=== PATIENT | female | born 1970 | race Caucasian/White ===

== ENCOUNTER 2025-03-18 15:46 | Outpatient (REF) | payer MEDICAID, SELFPAY ==
[2025-03-18 18:21] LABS: MANUAL DIFF FLAG NO
[2025-03-18 18:51] LABS: Hematocrit 35.5 % (37.0-47.0); Hemoglobin 11.3 g/dl (12.0-16.0); Imm Gran Abs Auto 0.00 X10*3/uL (0.00-0.03); Imm Gran Pct Auto 0.0 % (0.0-0.4); Lymphocytes Absolute Auto 1.9 X10*3/uL (1.2-4.9); Mean Corpuscular HGB Conc 31.8 g/dl (31.0-35.0); Mean Corpuscular Hemoglobin 28.5 pg (27.0-33.0); Mean Corpuscular Volume 89.6 fL (80.0-98.0); NRBC Abs Auto 0.000 X10*3/uL (0.0-0.012); NRBC Pct Auto 0.0 /100WBC (0.0-0.2); Platelet Count 231 X10*3/uL (160-400); Red Blood Count 3.96 X10*6/uL (4.20-5.50); White Blood Count 4.7 X10*3/uL (4.8-10.8)
[2025-03-18 19:52] LABS: Alanine Aminotransferase 75 U/L (0-31); Albumin Level 3.2 g/dL (3.5-5.0); Alkaline Phosphatase 88 U/L (39-117); Anion Gap 12 (12-20); Aspartate Amino Transferase 84 U/L (5-31); Blood Urea Nitrogen 9 mg/dL (9-16); Calcium 8.4 mg/dL (8.4-10.2); Carbon Dioxide 28 mmol/L (22-29); Chloride 107 mmol/L (96-108); Cholesterol 126 mg/dL (<200); Estimated Glomerular Filt Rate > 60; HDL Cholesterol 25 mg/dL (>40); Potassium 4.1 mmol/L (3.3-5.1); Sodium 143 mmol/L (135-145); Total Protein 6.2 g/dL (6.5-8.0); Triglycerides 217 mg/dL (<150)
[2025-03-19 07:39] LABS: Syphilis Screen Nonreactive (Nonreactive)
[2025-03-19 07:48] LABS: HIV Num 1 0.06 S/CO (0.00-0.99); ~HepC Num1 0.23 S/CO (0.00-0.79); ~Hepatitis C Antibody Nonreactive (Nonreactive)
[2025-03-19 07:49] LABS: HBS Num1 0.00 mIU/mL (0-7.99); HBc Num1 0.14 S/CO (0.00-0.79); HBsAGNum1 0.35 S/CO (0.00-0.99); Hepatitis B Surface Antigen Negative (Negative); ~Hepatitis B Surface Antibody NONREACTIVE (Nonreactive)
== END 2025-03-18 15:47 | disposition home or self-care (01) ==
LOC: HO.CHCLDS 15:46
PROVIDERS: Referring Provider Family Medicine
DX: F11.90 Opioid use, unspecified, uncomplicated (principal); Z76.89 Persons encountering health services in other specified circumstances; Z11.4 Encounter for screening for human immunodeficiency virus [HIV]; Z11.59 Encounter for screening for other viral diseases
CPT/HCPCS: 36415; 80053; 80061; 82248; 85025; 86481; 86704; 86706; 86708; 86780; 86803; 87340; 87389